=== PATIENT | female | born 1990 | race Caucasian/White ===

== ENCOUNTER 2019-09-27 22:42 | Inpatient (IN) | payer SELFPAY ==
--- NOTE | 2019-09-27 22:47 | ED_ITS ---
HPI - Psych General: Stated Complaint: SI/ DIRECT ADMIT Time Seen by Provider: 09/27/19 22:43 Source: patient and EMS Mode of arrival: EMS Limitations: no limitations History of Present Illness: HPI Narrative: 29-year-old female who is been having suicidal ideations. Patient transferred here from [place] as a direct admit. Policy is to come to the ER to clear for COVID. Patient is well- appearing here has no fever or cough. Associated symptoms: Reports depression and suicidal ideation Review of Systems Const: Denies: fever(s), chills, body aches or change in appetite Eyes: Denies: blurry vision or eye discomfort ENMT: Denies: throat pain or dental pain Card: Denies: chest pain Resp: Denies: dyspnea GI: Denies: abdominal pain, nausea, vomiting or diarrhea : Denies: dysuria Musc: Denies: neck pain or back pain Skin/Breast: Denies: rash Neuro: Denies: headache(s) Psych: Reports: depression and suicidal ideation Tony/Lymph: Denies: easy bruising All/Imm: Denies: urticaria Physical Exam Const: COMMON NORMALS: no acute distress, patient oriented x3 and healthy appearing HENMT: COMMON NORMALS: normocephalic and atraumatic HEAD & SCALP: normocephalic and atraumatic Eye: COMMON NORMALS: Equal, round and reactive pupils present and EOMs intact bilaterally PUPIL: Yes Equal, round and reactive pupils present Neck/C-Spine: COMMON NORMALS: full ROM and supple Chest: COMMONS NORMALS: normal inspection of the chest and normal palpation of entire chest wall Resp: COMMON NORMALS: normal respiratory effort, No retractions, No use of accessory muscles and clear to auscultation bilaterally AUSCULTATION: clear to auscultation bilaterally Cardio: COMMON NORMALS: regular rate, regular rhythm and No murmurs present (Cardio) RATE: regular rate RHYTHM: regular rhythm GI: COMMON NORMALS: Normal to inspection, nondistended, normoactive bowel sounds present, Soft to palpation, non-tender and no masses PALPATION: Yes Soft to palpation Extremity: COMMON NORMALS: normal to inspection and full ROM Neuro: COMMON NORMALS: patient oriented x3, moves all extremities and no focal motor deficits Psych: COMMON NORMALS: mental status grossly normal, Normal thought process present and cooperative MOOD & AFFECT: Yes depressed mood THOUGHT PROCESS: Normal thought process present Skin: COMMON NORMALS: no rashes or lesions noted and no wounds GENERAL SKIN EXAM: no rashes or lesions noted MDM - Psych MDM Narrative: Medical decision making narrative: Patient presents for suicidal ideation and will admit to the psychiatric unit. Patient is well- appearing here and medically cleared Discharge Plan Discharge Patient Disposition: Admitted As Inpatient Clinical Impression: Suicidal ideation Condition: Stable Coding Level of Care Code ED [employer] Manager for Kirsty Patrick
[2019-09-27 22:54] VITALS: BP 145/96; PULSE 91; RESP 20; TEMP 36.4; O2SAT 95; BMI 37.8
[2019-09-28 00:03] VITALS: BP 137/100; PULSE 102; RESP 19; TEMP 36.6; O2SAT 97
[2019-09-28] MEDS: OLANZapine 5 mg ODT PO ×3 (02:53→18:13)
[2019-09-28] MEDS: ondansetron 4 MG Tablet PO (02:53)
[2019-09-28 06:00] VITALS: BP 135/90; PULSE 85; RESP 18; TEMP 36.7; O2SAT 98
--- NOTE | 2019-09-28 10:38 | PC.NURSE ---
PRN ZYPREXA ZYDIS ZYPREXA ZYDIS 5MG PO PER PATIENT C/O ANXIETY. WILL CONTINUE TO MONITOR FOR MEDICATION EFFECTIVENESS.
--- NOTE | 2019-09-28 11:40 | PC.NURSE ---
PRN ZYPREXA ZYDIS FOLLOW UP MEDICATION EFFECTIVE. PATIENT RESTING IN BED RESPIRATIONS EVEN AND UNLABORED.
[2019-09-28 13:31] VITALS: BP 120/76; PULSE 76; RESP 18; TEMP 36.8; O2SAT 100
--- NOTE | 2019-09-28 14:43 | P.HP_ITS ---
Providers/Chief Complaint Admitting Physician: Callum Alcala MD Chief Complaint: SI/ DIRECT ADMIT HPI NPU History of Present Illness CLARITZA ORTA is a 29 year old female who was transferred to the adult psychi atric unit from the emergency room at [facility] in [place] based on an affidavit that states in total patient has ongoing paranoid delusion with self harming psychotic behavior and suicidal ideation reported. Patient needs psychiatric evaluation and treatment and does not appear to have clinical capacity for decision-making. She apparently was brought to the emergency room by her mother who stated that she used to live with her father in [facility] but that mother brought her to [place] to live with mother about a year ago. They came to visit the patient's maternal uncle with plans to return to [place]. However the patient has not been taking her medication and locked herself in the bathroom yesterday and police were called. Patient then was allegedly hostile and brought to the hospital. She was then discharged with 4 days worth of her medications. However mother states that she cannot get her meds due to lack of funds and inability to utilize her [place] Medicaid card. Transfer documents states that mother can stabilize the patient without medications and does not feel safe traveling back to [place] without them. No further information was provided regarding her mental status or psychiatric history. Psychiatric history is positive for 1 prior psychiatric admission according to patient. She could not give any significant details regarding time, reason for admission, or treatment provided. Medical history: Patient apparently has no known drug allergies. Otherwise she provides no medical history. Her laboratories on admission are significant for a urinary tract infection. Her urine drug screen was positive only for benzodiazepines and it is noted that those have been prescribed in the past. Transfer document indicates the intention of the emergency room physician intending to treat her urinary tract infection. Nothing was apparently started. Review of Systems Narrative: Patient was not cooperative with review of systems. Meds NPU Allergies Allergy/AdvReac Type Severity Reaction Status Date / Time No Known Allergies Allergy Verified 09/27/19 23:23 Psychiatric Medication Details Patient states that she takes psychiatric medications. She does not know the names. She cannot identify any current or past psychiatric medications. PFSH NPU PFSH: Social History Smoking and tobacco status: current every day smoker Mental Status Exam MSE Comments: The patient was entered into the interview room. Her gait was slow and waddling. She is moderately only overweight. She is dressed in hospital gown. Eye contact is good. Psychomotoric activity is retarded. Her speech is slow. Answers are limited to one word or short phrases. She did not elaborate on any answer. Most of her answers are I do not know. She was able to confirm that she lived in [place] and recently had moved from [place] and was only in [place] temporarily. She denied suicidal or homicidal ideation. She denied the presence of auditory or visual hallucinations. She initially stated that her main problem was not being able to sleep. She then asked if she could go back to her room and go back to sleep. Thought processes appear to be concrete. Affect is flat. Vitals/I&O/Wt Last Vital Signs Temp 98.3 F 09/28/19 13:31 Pulse 76 09/28/19 13:31 Resp 18 09/28/19 13:31 BP 120/76 09/28/19 13:31 Pulse Ox 100 09/28/19 13:31 Weight last 48 hrs Weight 99.79 kg A&P Assessment and plan (1) Urinary tract infection: Status: Acute Additional A&P Information Assessment: This is a difficult situation in that her affidavit does not specifically explain how she is an imminent risk to self or others. The information available does not support the claim of self harming psychotic behavior and suicidal ideation . She herself gives no indication of a mental he alth problem other than her desire to sleep more. She gives no indication of suicidality or imminent risk. She will be entered into the full array of individual and group therapies as part of the psychiatric unit protocol. She was provided access to trained nursing care and will see a social work assessment when she is willing to participate. She does have a urinary tract infection which we will treat by initiating Bactrim DS. Involuntary Hold Information 96 Hour Hold: 96 Hour Involuntary Admission: No Attestations NPU Medical Necessity Statement*: Patient will remain in the hospital another 2-4 nights for assessment of medication need and efficacy and tolerability when indicated. Coding Level of Care Code Acute Resawyer for Kirsty Patrick Diagnoses Urinary tract infection N39.0
--- NOTE | 2019-09-28 18:13 | PC.NURSE ---
PRN ZYPREXA ZYDIS ZYPREXA ZYDIS 5MG PO FOR ANXIETY/HALLUCINATIONS. WILL CONTINUE TO MONITOR FOR MEDICATION EFFECTIVENESS.
[2019-09-28 19:58] VITALS: BP 139/89; PULSE 98; RESP 17; TEMP 37.1; O2SAT 98
[2019-09-28] MEDS: sertraline 50 mg Tablet PO (21:29)
[2019-09-28] MEDS: hyDROXYzine 25 mg Capsule 50 MG PO (21:30)
[2019-09-28] MEDS: sulfamethoxazole-trimeth DS 160-800 mg Tablet 1 TAB PO (21:30)
[2019-09-28] MEDS: trazodone 50 mg Tablet PO (21:30)
[2019-09-29 06:00] VITALS: BP 129/88; PULSE 97; RESP 16; TEMP 37; O2SAT 98
[2019-09-29] MEDS: OLANZapine 5 mg ODT PO ×2 (13:29→19:25)
--- NOTE | 2019-09-29 13:29 | PC.NURSE ---
PRN ZYPREXA ZYDIS ZYPREXA ZYDIS 5MG PO PER PATIENT C/O AGITATION/ANXIETY. WILL CONTINUE TO MONITOR FOR MEDICATION EFFECTIVENESS.
[2019-09-29 13:37] VITALS: BP 146/69; PULSE 122; RESP 20; TEMP 36.8; O2SAT 97
--- NOTE | 2019-09-29 14:30 | PC.NURSE ---
PRN ZYPREXA ZYDIS FOLLOW UP MEDICATION EFFECTIVE. PATIENT LYING IN BED RESTING, RESPIRATIONS EVEN AND UNLABORED.
--- NOTE | 2019-09-29 15:29 | PM.NPN ---
Subjective NPU Medications: Medication Review Details: The patient states that she slept well last night. She has questions about when she will be allowed to return to the custody of her mother so that she can return to [place]. She has no complaints at this time. She denies the presence of auditory or visual hallucinations. Mental Status Exam MSE Comments: Mental Status Exam: The patient is encountered in her room ambulating with a blanket around her shoulders. Eye contact is good. Appearance: hygiene is fair; no gross neurological deficits., gait is unremarkable; AIMS=0 Speech: Speech is of normal rate and rhythm and easily understood but limited to one word or short phrases. She does not provide supplementary but information or free discourse. Thought processes: Thought processes are concrete. Judgment is not adequate for safety without supervision. Associations: intact Psychotic processes: There is no indication of guarding or paranoia. There is no attention to the internal stimuli. Auditory and visual hallucinations are denied. Judgment: Insight is fair. Problem solving skills are adequate for safety. Orientation: The patient is oriented to person, place time and situation. Memory: no deficits noted in immediate, intermediate, or remote spheres. Attention: The patient is alert and interpersonally engaged. Language: Verbalizations are coherent. Fund of knowledge: Fund of knowledge is adequate. Affect/Mood: Affect is flat with a depressed mood. She denies suicidal ideation Affective range is appropriate. Psychosis: perception unimpaired except through cognitive distortion; reality testing intact. Cognition: Ability to Follow Directions: Fair Hallucination Type: None Delusion Description: Not Present Thought Process: Appropriate and Flight of Ideas Affect: Affect Description: [place] Behavior: Patient Behavior: Appropriate, Cooperative and Somatic Speech Pattern: Clear Vitals/I&O/Wt Last Vital Signs Temp 98.2 F 09/29/19 13:37 Pulse 122 H 09/29/19 13:37 Resp 20 H 09/29/19 13:37 BP 146/69 09/29/19 13:37 Pulse Ox 97 09/29/19 13:37 Weight last 48 hrs Weight 99.79 kg A&P Assessment and plan (1) Urinary tract infection: Status: Acute (2) Delirium due to another medical condition: Status: Acute Additional A&P Information Assessment: This is a difficult situation in that her affidavit does not specifically explain how she is an imminent risk to self or others. The information available does not support the claim of self harming psychotic behavior and suicidal ideation . She herself gives no indication of a mental health problem other than her desire to sleep more. She gives no indication of suicidality or imminent risk. She will be entered into the full array of individual and group therapies as part of the psychiatric unit protocol. She was provided access to trained nursing care and will see a social work assessment when she is willing to participate. She does have a urinary tract infection which we will treat by initiating Bactrim DS. Hospital day #3: Patient has yet to start on her medication, Vraylar. However she has started on the antibiotic for her urinary tract infection and depression. Her mental status has improved. Her mother has acquired the rather expensive medication which she is on and is bringing it to the hospital to initiate treatment. Involuntary Hold Information 96 Hour Hold: 96 Hour Involuntary Admission: No Attestations NPU Medical Necessity Statement*: Patient will remain in the hospital another 2-4 nights for assessment of medication efficacy and tolerability. Coding Level of Care Code Acute Library Circulation Department Chief for Kirsyt Patrick Diagnoses Urinary tract infection N39.0 Delirium due to another medical condition F05
[2019-09-29] MEDS: hyDROXYzine 25 mg Capsule 50 MG PO (16:38)
--- NOTE | 2019-09-29 16:38 | PC.NURSE ---
Addendum entered by Beatris Bryan LPN 09/29/19 17:48: MEDICATION SOMEWHAT EFFECTIVE, PATIENT SITTING IN ROOM WALKING AROUND. Original Note: PRN VISTARIL VISTARIL 50MG PO FOR ANXIETY. WILL CONTINUE TO MONITOR FOR MEDICATION EFFECTIVENESS.
--- NOTE | 2019-09-29 19:04 | PC.NURSE ---
patient note patients mom brought in medication for patient. staff took medication to pharmacy to get lable and pharmacy said he can see the fill history and it is a new medication and to asked doctor if he still wanted patient to have medication. staff called doctor Garcia and he said to give medication to patient.
--- NOTE | 2019-09-29 19:32 | PC.NURSE ---
ZYPREXA PT IN ROOM YELLING AND SCREAMING THAT SHE WANTS TO GO HOME. AFTER SEVERAL ATTEMPTS TO VERBALLY DE-ESCALATE PATIENT. PATIENT WAS GIVEN ZYPREXA ZYDIS 5 MG SUBLINGUAL. WILL MONITOR FOR MEDICATION EFFECTIVENESS.
[2019-09-29 20:44] VITALS: RESP 19
[2019-09-29] MEDS: sertraline 50 mg Tablet PO (21:29)
[2019-09-29] MEDS: sulfamethoxazole-trimeth DS 160-800 mg Tablet 1 TAB PO (21:29)
--- NOTE | 2019-09-29 22:25 | PC.NURSE ---
PRN TRAZODONE PT REQUESTING SLEEP AID. TRAZODONE 50 MG ADMINISTERED PO. WILL MONITOR FOR MEDICATION EFFECTIVENESS.
[2019-09-30 06:00] VITALS: BP 123/82; PULSE 81; RESP 18; TEMP 36.8; O2SAT 96
[2019-09-30 14:00] VITALS: BP 153/81; PULSE 116; RESP 18; TEMP 36.5; O2SAT 99
[2019-09-30] MEDS: hyDROXYzine 25 mg Capsule 50 MG PO (15:06)
--- NOTE | 2019-09-30 15:06 | PC.NURSE ---
PRN VISTARIL 50 MG GIVEN PO PER PT C/O STATED ANXIETY WILL CONT TO MONITOR
[2019-09-30] MEDS: LORazepam 1 mg Tablet PO ×2 (18:27→21:45)
[2019-09-30] MEDS: ziprasidone hcl 40 mg Capsule PO (18:27)
--- NOTE | 2019-09-30 18:34 | PM.NPN ---
Subjective NPU Medications: Medication Review Details: Patient decompensated considerably throughout the day. She began obsessing over whether she was safe and then worrying about whether she would be allowed to go home with her mother. Shortly before her mother showed up to pick her up, she reported to staff that she was having suicidal thoughts. On interview with this physician on 2 separate occasions, she was disorganized in her thinking. She denied the presence of auditory or visual hallucinations though it is unclear whether she was a reliable source of information. She was quite anxious and hypervigilant throughout. Mental Status Exam MSE Comments: Mental Status Exam: On both occasions, the patient was encountered in her room. She was quite hypervigilant and would not look at this physician directly. Appearance: hygiene is fair; no gross neurological deficits., gait is unremarkable; AIMS=0 Speech: Speech is of normal rate and rhythm and easily understood but limited to one word or short phrases. She does not provide supplementary but information or free discourse. Thought processes: Thought processes are concrete and occasionally idiosyncratic. Judgment is not adequate for safety without supervision. Associations: intact Psychotic processes: There is no indication of guarding or paranoia. There is no attention to the internal stimuli. Auditory and visual hallucinations are denied. Judgment: Insight is fair. Problem solving skills are adequate for safety. Orientation: The patient is oriented to person, place time and situation. Memory: no deficits noted in immediate, intermediate, or remote spheres. Attention: The patient is alert and interpersonally engaged. Language: Verbalizations are coherent. Fund of knowledge: Fund of knowledge is adequate. Affect/Mood: Affect is flat with a unstated mood. She denies suicidal ideation Affective range is constricted Psychosis: perception impaired through disorganized thinking and idiosyncratic logic. Reality testing is challenged. Cognition: Patient Appearance: Appropriate Level of Consciousness: Awake, Alert and Appropriate Patient Cognition Impaired: No Ability to Follow Directions: Fair Patient Orientation (long list): Person, Place, Time and Year Comprehension Ability: No Impairment Hallucination Type: None Delusion Description: Not Present Thought Process: Flight of Ideas and Loose Associations Affect: Affect Description: Calm Behavior: Patient Behavior: Appropriate Speech Pattern: Clear Vitals/I&O/Wt Last Vital Signs Temp 97.7 F 09/30/19 14:00 Pulse 116 H 09/30/19 14:00 Resp 18 09/30/19 14:00 BP 153/81 09/30/19 14:00 Pulse Ox 99 09/30/19 14:00 A&P Assessment and plan (1) Urinary tract infection: Status: Acute (2) Delirium due to another medical condition: Status: Acute (3) Schizoaffective disorder, depressive type: In conversation with her mother, history would be consistent with this diagnosis though we cannot confirm that she meets exact criteria due to inadequacy of information. The patient has been off of her Vraylar for nearly a month. The pharmacokinetics of this would require her to be on the medication for quite some time before she receives any benefit. She is quite anxious during the interview. We could not confirm whether there was significant emotional trauma in the past to justify consideration for posttraumatic stress disorder. However she is quite anxious and fearful throughout the day. Status: Acute Additional A&P Information Assessment: This is a difficult situation in that her affidavit does not specifically explain how she is an imminent risk to self or others. The information available does not support the claim of self harming psychotic behavior and suicidal ideation . She herself gives no indication of a mental health problem other than her desire to sleep more. She gives no indication of suicidality or imminent risk. She will be entered into the full array of individual and group therapies as part of the psychiatric unit protocol. She was provided access to trained nursing care and will see a social work assessment when she is willing to participate. She does have a urinary tract infection which we will treat by initiating Bactrim DS. Hospital day #3: Patient has yet to start on her medication, Vraylar. However she has started on the antibiotic for her urinary tract infection and depression. Her mental status has improved. Her mother has acquired the rather expensive medication which she is on and is bringing it to the hospital to initiate treatment. Hospital day #4:In conversation with her mother, history would be consistent with this diagnosis though we cannot confirm that she meets exact criteria due to inadequacy of information. The patient has been off of her Vraylar for nearly a month. The pharmacokinetics of this would require her to be on the medication for quite some time before she receives any benefit. She is quite anxious during the interview. We could not confirm whether there was significant emotional trauma in the past to justify consideration for posttraumatic stress disorder. However she is quite anxious and fearful throughout the day. Plan: She is now on her Vraylar 1.5 mg at bedtime and sertraline 50 mg daily. We are going to supplement this on the short-term with Geodon 40 mg twice daily and lorazepam as needed. Consideration will be given to utilization of prazosin at bedtime. We discussed with mother her discharge plans and the plan is that the patient will return to [place] with a follow-up appointment scheduled to sometime next week. Involuntary Hold Information 96 Hour Hold: 96 Hour Involuntary Admission: No Attestations NPU Medical Necessity Statement*: Patient will remain in the hospital another 2-4 nights for assessment of medication efficacy and tolerability. Coding Level of Care Code Acute Prototype Carpenter for Kirsty Patrick Diagnoses Urinary tract infection N39.0 Delirium due to another medical condition F05 Schizoaffective disorder, depressive type F25.1
[2019-09-30] MEDS: sulfamethoxazole-trimeth DS 160-800 mg Tablet 1 TAB PO (21:45)
[2019-09-30] MEDS: sertraline 50 mg Tablet PO (21:45)
[2019-09-30 22:00] VITALS: BP 129/83; PULSE 81; RESP 16; TEMP 37; O2SAT 98
[2019-10-01 06:00] VITALS: BP 142/87; PULSE 67; RESP 17; TEMP 36.6; O2SAT 99
[2019-10-01] MEDS: ziprasidone hcl 40 mg Capsule PO ×2 (06:33→16:47)
--- NOTE | 2019-10-01 06:41 | PC.NURSE ---
1:1 Sitter and staff report pt has been calm and denies any SI/HI/AVH. This headline writer spoke with pt who again denies all and is pleasant. called and order given to discontinue 1:1 sitter at this time.
--- NOTE | 2019-10-01 08:05 | P.PN_ITS ---
Subjective NPU Medications: Medication Review Details: I want to stay here until I am doing better. I want to be able to tell the difference between fantasy and reality. Patient reports that she is very tired this morning. She denies any other side effects to medication changes. She stated that that she had only been in the hospital 1 other time. She has been taking medications for mental health reasons for the past 7 years. She cannot remember the names of other medications she has taken. She eventually became a little fearful as my questions became more intrusive. Mental Status Exam MSE Comments: Mental Status Exam: Patient was encountered sitting up in her bed early in the morning. She was more conversant than she was yesterday. She was able to make statements above. She appeared to mildly fatigued. Appearance: hygiene is fair; no gross neurological deficits., gait is unremarkable; AIMS=0 Speech: Speech is of normal rate and rhythm and easily understood but limited to one word or short phrases. She does not provide supplementary but information or free discourse. Thought processes: Thought processes are concrete and occasionally idiosyncratic. Judgment is not adequate for safety without supervision. Associations: intact Psychotic processes: There is no indication of guarding or paranoia. There is no attention to the internal stimuli. Auditory and visual hallucinations are denied. Judgment: Insight is fair. Problem solving skills are adequate for safety. Orientation: The patient is oriented to person, place time and situation. Memory: no deficits noted in immediate, intermediate, or remote spheres. Attention: The patient is alert and interpersonally engaged. Language: Verbalizations are coherent. Fund of knowledge: Fund of knowledge is adequate. Affect/Mood: Affect is flat with a unstated mood. She denies suicidal ideation Affective range is constricted Psychosis: perception impaired through disorganized thinking and idiosyncratic logic. Reality testing is challenged. Cognition: Patient Appearance: Appropriate Level of Consciousness: Awake, Alert and Appropriate Patient Cognition Impaired: No Ability to Follow Directions: Fair Patient Orientation (long list): Person, Place, Time and Year Comprehension Ability: No Impairment Hallucination Type: Auditory Delusion Description: Not Present Thought Process: Flight of Ideas and Loose Associations Affect: Affect Description: Calm Behavior: Patient Behavior: Appropriate Speech Pattern: Rambling Vitals/I&O/Wt Last Vital Signs Temp 97.9 F 10/01/19 06:00 Pulse 67 10/01/19 06:00 Resp 17 10/01/19 06:00 BP 142/87 10/01/19 06:00 Pulse Ox 99 10/01/19 06:00 A&P Assessment and plan (1) Urinary tract infection: Status: Acute (2) Delirium due to another medical condition: Status: Acute (3) Schizoaffective disorder, depressive type: In conversation with her mother, history would be consistent with this diagnosis though we cannot confirm that she meets exact criteria due to inadequacy of information. The patient has been off of her Vraylar for nearly a month. The pharmacokinetics of this would require her to be on the medication for quite some time before she receives any benefit. She is quite anxious during the interview. We could not confirm whether there was significant emotional trauma in the past to justify consideration for posttraumatic stress disorder. However she is quite anxious and fearful throughout the day. Status: Acute Additional A&P Information Assessment: This is a difficult situation in that her affidavit does not specifically explain how she is an imminent risk to self or others. The information available does not support the claim of self harming psychotic behavior and suicidal ideation . She herself gives no indication of a mental health problem other than her desire to sleep more. She gives no indication of suicidality or imminent risk. She will be entered into the full array of individual and group therapies as part of the psychiatric unit protocol. She was provided access to trained nursing care and will see a social work assessment when she is willing to participate. She does have a urinary tract infection which we will treat by initiating Bactrim DS. Hospital day #3: Patient has yet to start on her medication, Vraylar. However she has started on the antibiotic for her urinary tract infection and depression. Her mental status has improved. Her mother has acquired the rather expensive medication which she is on and is bringing it to the hospital to initiate treatment. Hospital day #4:In conversation with her mother, history would be consistent wi th this diagnosis though we cannot confirm that she meets exact criteria due to inadequacy of information. The patient has been off of her Vraylar for nearly a month. The pharmacokinetics of this would require her to be on the medication for quite some time before she receives any benefit. She is quite anxious during the interview. We could not confirm whether there was significant emotional trauma in the past to justify consideration for posttraumatic stress disorder. However she is quite anxious and fearful throughout the day. Plan: She is now on her Vraylar 1.5 mg at bedtime and sertraline 50 mg daily. We are going to supplement this on the short-term with Geodon 40 mg twice daily and lorazepam as needed. Consideration will be given to utilization of prazosin at bedtime. We discussed with mother her discharge plans and the plan is that the patient will return to [place] with a follow-up appointment scheduled to sometime next week. Hospital day #5: Patient slept better last night and is a little fatigued today. This is on day #2 after starting her Geodon yesterday. She also had lorazepam 1 mg at bedtime. It is difficult to assess her degree of deficit and reality testing because she becomes fearful as the become more intrusive. However initial response to medication changes is encouraging. Plan: We will change lorazepam to and only as needed medication and stop the bedtime dosage. Continue day #2 of Geodon 20 mg twice daily and day #3 of Vraylar 1.5 mg daily. Involuntary Hold Information 96 Hour Hold: 96 Hour Involuntary Admission: No Attestations NPU Medical Necessity Statement*: Patient will remain in the hospital another 2-4 nights for assessment of medication efficacy and tolerability. Coding Level of Care Code Acute Nail Machine Operator for Kirsty Patrick Diagnoses Urinary tract infection N39.0 Delirium due to another medical condition F05 Schizoaffective disorder, depressive type F25.1
[2019-10-01 14:00] VITALS: BP 119/84; PULSE 92; RESP 20; TEMP 36.7; O2SAT 97
[2019-10-01] MEDS: acetaminophen 325 mg Tablet 650 MG PO (17:59)
[2019-10-01] MEDS: sertraline 50 mg Tablet PO (21:19)
[2019-10-01] MEDS: LORazepam 0.5 mg Tablet PO (21:19)
[2019-10-01] MEDS: trazodone 50 mg Tablet PO (21:19)
--- NOTE | 2019-10-01 21:19 | PC.NURSE ---
PRN ATIVAN & TRAZODONE PT IN ROOM PACING AND GETTING AGITATED. ADMINISTERED ATIVAN 0.5 MG PO. PT ALSO REQUESTING SLEEP AID. ADMINISTERED TRAZODONE 50 MG PO. WILL MONITOR FOR MEDICATION EFFECTIVENESS.
[2019-10-01 21:42] VITALS: BP 135/98; PULSE 100; RESP 26; TEMP 36.7; O2SAT 97
[2019-10-02] MEDS: OLANZapine 5 mg ODT PO (00:13)
--- NOTE | 2019-10-02 00:13 | PC.NURSE ---
PRN ZYPREXA PT IN ROOM CRYING AND TALKING LOUDLY. PT BECOMING INCREASING AGITATED AND RESPONDING TO AUDITORY STIMULATION. WILL MONITOR FOR MEDICATION EFFECTIVENESS.
[2019-10-02 06:00] VITALS: BP 108/75; PULSE 86; RESP 20; TEMP 36.9; O2SAT 98
[2019-10-02] MEDS: ziprasidone hcl 40 mg Capsule PO (06:28)
--- NOTE | 2019-10-02 10:06 | P.PN_ITS ---
Subjective NPU Medications: Medication Review Details: Patient states that she is having both auditory and visual hallucinations. She hears a number of voices though she also is a able to identify a single voices that of her boyfriend. He says encouraging things. There is no command nature to the voices. She also reports visual hallucinations. She visualizes being in a hospital where there are a number of people that she does not know. She feels that the medications are making her tired. She does not feel that she is ready to leave the hospital. Mental Status Exam MSE Comments: Mental Status Exam: Patient was interviewed in the office. She appeared perplexed and concerned. She appeared to mildly fatigued. Appearance: hygiene is fair; no gross neurological deficits., gait is unremark able; AIMS=0 Speech: Speech is of normal rate and rhythm and easily understood . She is speaking in complete sentences and answering questions appropriately though she does not elaborate on answers. Thought processes: Thought processes are occasionally idiosyncratic. Judgment is not adequate for safety without supervision. Associations: intact Psychotic processes: She is guarded. There is no indication of paranoia. She does tend to internal stimuli. She was observed by this physician last evening laying in bed talking to unseen people. She does report visual hallucinations as described above. Judgment: Insight is fair. Problem solving skills are not adequate for safety. Orientation: The patient is oriented to person, place time and situation. Memory: no deficits noted in immediate, intermediate, or remote spheres. Attention: The patient is alert and interpersonally engaged. Language: Verbalizations are coherent. Fund of knowledge: Fund of knowledge is adequate. Affect/Mood: Affect is flat with a euthymic mood. She denies suicidal ideation Affective range is constricted Psychosis: perception impaired through the presence of auditory and visual hallucinations and her difficulty in discerning fantasy from reality.. Reality testing is challenged. Cognition: Ability to Follow Directions: Fair Vitals/I&O/Wt Last Vital Signs Temp 98.5 F 10/02/19 06:00 Pulse 86 10/02/19 06:00 Resp 20 H 10/02/19 06:00 BP 108/75 10/02/19 06:00 Pulse Ox 98 10/02/19 06:00 A&P Assessment and plan (1) Urinary tract infection: Status: Acute (2) Delirium due to another medical condition: Status: Acute (3) Schizoaffective disorder, depressive type: In conversation with her mother, history would be consistent with this diagnosis though we cannot confirm that she meets exact criteria due to inadequacy of information. The patient has been off of her Vraylar for nearly a month. The pharmacokinetics of this would require her to be on the medication for quite some time before she receives any benefit. She is quite anxious during the interview. We could not confirm whether there was significant emotional trauma in the past to justify consideration for posttraumatic stress disorder. However she is quite anxious and fearful throughout the day. Status: Acute Additional A&P Information Assessment: This is a difficult situation in that her affidavit does not s pecifically explain how she is an imminent risk to self or others. The information available does not support the claim of self harming psychotic behavior and suicidal ideation . She herself gives no indication of a mental health problem other than her desire to sleep more. She gives no indication of suicidality or imminent risk. She will be entered into the full array of individual and group therapies as part of the psychiatric unit protocol. She was provided access to trained nursing care and will see a social work assessment when she is willing to participate. She does have a urinary tract infection which we will treat by initiating Bactrim DS. Hospital day #3: Patient has yet to start on her medication, Vraylar. However she has started on the antibiotic for her urinary tract infection and depression. Her mental status has improved. Her mother has acquired the rather expensive medication which she is on and is bringing it to the hospital to initiate treatment. Hospital day #4:In conversation with her mother, history would be consistent with this diagnosis though we cannot confirm that she meets exact criteria due to inadequacy of information. The patient has been off of her Vraylar for nearly a month. The pharmacokinetics of this would require her to be on the medication for quite some time before she receives any benefit. She is quite anxious during the interview. We could not confirm whether there was significant emotional trauma in the past to justify consideration for posttraumatic stress disorder. However she is quite anxious and fearful throughout the day. Plan: She is now on her Vraylar 1.5 mg at bedtime and sertraline 50 mg daily. We are going to supplement this on the short-term with Geodon 40 mg twice daily and lorazepam as needed. Consideration will be given to utilization of prazosin at bedtime. We discussed with mother her discharge plans and the plan is that the patient will return to [place] with a follow-up appointment scheduled to sometime next week. Hospital day #5: Patient slept better last night and is a little fatigued today. This is on day #2 after starting her Geodon yesterday. She also had lorazepam 1 mg at bedtime. It is difficult to assess her degree of deficit and reality testing because she becomes fearful as the become more intrusive. However initial response to medication changes is encouraging. Plan: We will change lorazepam to and only as needed medication and stop the bedtime dosage. Continue day #2 of Geodon 20 mg twice daily and day #3 of Vraylar 1.5 mg daily. Hospital day #6: Patient continues to struggle with auditory and visual hallucinations. She appears to be tolerating the medication well. She may be doing better in terms of at least being able to interact with this physician and staff to better understand what she is experiencing. However she continues to be psychotic though not necessarily depressed. This is day #2 of Geodon 40 mg twice daily and day #4 Vraylar 1.5 mg daily. She was told that she now would be required to at least attend of the group therapies. Involuntary Hold Information 96 Hour Hold: 96 Hour Involuntary Admission: No Attestations NPU Medical Necessity Statement*: Patient will remain in the hospital another 4-7 nights until her psychosis improves. Coding Level of Care Code Acute Diesel Pile Hammer Operator for Kirsty Patrick Diagnoses Urinary tract infection N39.0 Delirium due to another medical condition F05 Schizoaffective disorder, depressive type F25.1
--- NOTE | 2019-10-02 13:57 | PM.NDC ---
Diagnoses at Discharge Discharge Diagnosis (1) Urinary tract infection: Status: Resolved (2) Delirium due to another medical condition: Status: Resolved (3) Schizoaffective disorder, depressive type: Status: Acute Reason for Visit Reason for Visit: SI/ DIRECT ADMIT Brief History: CLARITZA ORTA is a 29 year old female who was transferred to the adult psychiatric unit from the emergency room at [facility] in [place] based on an affidavit that states in total patient has ongoing paranoid delusion with self harming psychotic behavior and suicidal ideation reported. Patient needs psychiatric evaluation and treatment and does not appear to have clinical capacity for decision-making. She apparently was brought to the emergency room by her mother who stated that she used to live with her father in [facility] but that mother brought her to [place] to live with mother about a year ago. They came to visit the patient's maternal uncle with plans to return to [place]. However the patient has not been taking her medication and locked herself in the bathroom yesterday and police were called. Patient then was allegedly hostile and brought to the hospital. She was then discharged with 4 days worth of her medications. However mother states that she cannot get her meds due to lack of funds and inability to utilize her [place] Medicaid card. Transfer documents states that mother can stabilize the patient without medications and does not feel safe traveling back to [place] without them. No further information was provided regarding her mental status or psychiatric history. Psychiatric history is positive for 1 prior psychiatric admission according to patient. She could not give any significant details regarding time, reason for admission, or treatment provided. Hospital Course Discharge Summary Assessment: This is a difficult situation in that her affidavit does not specifically explain how she is an imminent risk to self or others. The information available does not support the claim of self harming psychotic behavior and suicidal ideation . She herself gives no indication of a mental health problem other than her desire to sleep more. She gives no indication of suicidality or imminent risk. She will be entered into the full array of individual and group therapies as part of the psychiatric unit protocol. She was provided access to trained nursing care and will see a social work assessment when she is willing to participate. She does have a urinary tract infection which we will treat by initiating Bactrim DS. Hospital day #3: Patient has yet to start on her medication, Vraylar. However she has started on the antibiotic for her urinary tract infection and depression. Her mental status has improved. Her mother has acquired the rather expensive medication which she is on and is bringing it to the hospital to initiate treatment. Hospital day #4:In conversation with her mother, history would be consistent with this diagnosis though we cannot confirm that she meets exact criteria due to inadequacy of information. The patient has been off of her Vraylar for nearly a month. The pharmacokinetics of this would require her to be on the medication for quite some time before she receives any benefit. She is quite anxious during the interview. We could not confirm whether there was significant emotional trauma in the past to justify consideration for posttraumatic stress disorder. However she is quite anxious and fearful throughout the day. Plan: She is now on her Vraylar 1.5 mg at bedtime and sertraline 50 mg daily. We are going to supplement this on the short-term with Geodon 40 mg twice daily and lorazepam as needed. Consideration will be given to utilization of prazosin at bedtime. We discussed with mother her discharge plans and the plan is that the patient will return to [place] with a follow-up appointment scheduled to sometime next week. Hospital day #5: Patient slept better last night and is a little fatigued today. This is on day #2 after starting her Geodon yesterday. She also had lorazepam 1 mg at bedtime. It is difficult to assess her degree of deficit and reality testing because she becomes fearful as the become more intrusive. However initial response to medication changes is encouraging. Plan: We will change lorazepam to and only as needed medication and stop the bedtime dosage. Continue day #2 of Geodon 20 mg twice daily and day #3 of Vraylar 1.5 mg daily. Hospital day #6: Patient continues to struggle with auditory and visual hallucinations. She appears to be tolerating the medication well. She may be doing better in terms of at least being able to interact with this physician and staff to better understand what she is experiencing. However she continues to be psychotic though not necessarily depressed. This is day #2 of Geodon 40 mg twice daily and day #4 Vraylar 1.5 mg daily. She was told that she now would be required to at least attend of the group therapies. Later in the day, her mother spontaneously showed up the hospital expecting for the patient to be discharged as the patient had called her mother the day before and told her to come get her. Mother was informed that the patient specifically stated that she felt like she needed to be in the hospital longer. The patient was then allowed to call her mother and the phone conversation monitored by this physician. In fact, the patient did state that she wanted to go home. Her mother, while on the phone, felt like she could manage the patient with the intent of her seeing a psychiatrist within the next week in [place]. They have an appointment and intend to keep that. She was no longer an imminent risk to self or others. It was deemed appropriate for her to be discharged in her mother's care. Involuntary Hold Information 96 Hour Hold: 96 Hour Involuntary Admission: No Mental Status Exam MSE Comments: Mental Status Exam: Patient was interviewed in the office. She appeared perplexed and concerned. She appeared to mildly fatigued. Appearance: hygiene is fair; no gross neurological deficits., gait is unremarkable; AIMS=0 Speech: Speech is of normal rate and rhythm and easily understood . She is speaking in complete sentences and answering questions appropriately though she does not elaborate on answers. Thought processes: Thought processes are occasionally idiosyncratic. Judgment is not adequate for safety without supervision. Associations: intact Psychotic processes: She is guarded. There is no indication of paranoia. She does tend to internal stimuli. She was observed by this physician last evening laying in bed talking to unseen people. She does report visual hallucinations as described above. Judgment: Insight is fair. Problem solving skills are not adequate for safety. Orientation: The patient is oriented to person, place time and situation. Memory: no deficits noted in immediate, intermediate, or remote spheres. Attention: The patient is alert and interpersonally engaged. Language: Verbalizations are coherent. Fund of knowledge: Fund of knowledge is adequate. Affect/Mood: Affect is flat with a euthymic mood. She denies suicidal ideation Affective range is constricted Psychosis: perception impaired through the presence of auditory and visual hallucinations and her difficulty in discerning fantasy from reality.. Reality testing is challenged. Discharge Data Vitals: Last Vital Signs Temp 98.5 F 10/02/19 06:00 Pulse 86 10/02/19 06:00 Resp 20 H 10/02/19 06:00 BP 108/75 10/02/19 06:00 Pulse Ox 98 10/02/19 06:00 Discharge Plan Discharge Patient Disposition: Home, Self-Care Condition: Stable Prescriptions: New Vraylar 1.5 mg PO BEDTIME Qty: 30 RF: 1 lorazepam 0.5 mg Tablet 0.5 mg PO Q4H PRN (Reason: Anxiety) Qty: 60 RF: 0 ziprasidone HCl 40 mg Capsule 40 mg PO 0700,1700 Qty: 60 RF: 0 sertraline 50 mg Tablet 100 mg PO DAILY Qty: 30 RF: 1 Discharge Orders: Discharge Order (Routine); Ordered 10/02/19 Ordered By: Kailash Garcia Referrals: Av Paez [Other] (fax: [phone] Andrey, initial curb worker October 06 @ 2:15 p.m. Your mom made this appointment because you are going back to [place]. This provider is closer to mom, she said. ) Patient Instructions: Lorazepam (By mouth), Sertraline (By mouth), Ziprasidone (By mouth), Schizoaffective Disorder (DC) Discharge Attestations NPU Time Spent in Discharge Care*: greater than 30 min Coding Level of Care Code Acute Professor Of Musicology for Chg Fwd Diagnoses Urinary tract infection N39.0 Delirium due to another medical condition F05 Schizoaffective disorder, depressive type F25.1
[2019-10-02 13:58] VITALS: BP 108/75; PULSE 86; RESP 20; TEMP 36.9; O2SAT 98
== END 2019-10-02 14:14 | disposition home or self-care (01) | DRG 885 ==
LOC: ER 22:49 → NP 23:01
PROVIDERS: Admitting Provider Psychiatry & Neurology Psychiatry; Visit Provider Psychiatry & Neurology Psychiatry
DX: F25.1 Schizoaffective disorder, depressive type (principal); N39.0 Urinary tract infection, site not specified; F05 Delirium due to known physiological condition; F17.210 Nicotine dependence, cigarettes, uncomplicated
CPT/HCPCS: 12345; 99281; Q0162